=== PATIENT | female | born 1960 | race Caucasian/White ===

== ENCOUNTER 2019-04-16 19:46 | Inpatient (IN) | payer OTHER ==
[~2019-04-16] VITALS: Ht 165.1 cm; Wt 72.6 kg
[~2019-04-16 19:46] MED LIST: ANTIVERT25 MG PO; DOXYCYCLINE HY100 MG PO; GABAPENTIN100 MG PO; KEFLEX500 MG PO; LEVAQUIN750 MG PO; LEVOFLOXACIN750 MG PO; NICOTINE1 EAC1 TD; NORCO 5-325 TA1 EACH PO; PREDNISONE20 MG PO; PROVENTIL HFA6.7 GM INH; TAMIFLU; TRANSDERM-SCOP1 EA TD; ZOFRAN ODT8 MG PO
[2019-04-16] MEDS ORDERED: CETIRIZINE HCL10 MG PO (23:38)
[2019-04-16] MEDS ORDERED: ZITHROMAX250 MG PO (23:38)
[2019-04-16] MEDS ORDERED: ALBUTEROL2.5 MG/3 M INH (23:39)
--- NOTE | 2019-04-17 01:14 | NUR ---
ADMIT PT TO RM 129 PER ROGER FROM ED. HAS FREQ DRY HARSCH COUGH. CHEST HURTS WITH COUGH SHREYAS L LOWER CHEST, GIVEN 400MG MOTRIN PO AND POSITION DOES HELP DEC PAIN. STATES HAS HAD HX OF LOW BLOOD PRESSURE IN PAST BUT WAS NORMAL RECENTLY. EXPLAINED WAS SOMEWHAT LOW NOW DUE TO INFECTION AND THAT WE WILL BE MONITORING. URINE OUTPUT GOOD, WILL CONT TO MONITOR. HAS CRACKLES POST 1/2 UP BILAT. GIVEN ROBITUSSIN FOR COUGH.
--- NOTE | 2019-04-17 02:15 | NUR ---
SLEEPING, SAT DEC TO 88. 02 2L NC APPLIED.
--- NOTE | 2019-04-17 04:16 | NUR ---
AWAKENED FOR ASSESSMENT. HAS BEEN ABLE TO REST BUT BEGAN COUGHING AFTER HAVING PT DEEP BREATH. GIVEN TESSALON REGLA.COUGH IS DRY AND NONPRODUCTIVE. BREATH TONES ARE SLIGHTLY DECREASED, CRACKLES HAVE GREATLY IMPROVED. TAKING PO WATER WELL.
--- NOTE | 2019-04-17 06:07 | NUR ---
SITTING UP IN BED DRINKING COFFEE. IF TALKS MORE THAN FEW SENTENCES WILL START COUGHING. WILL WATCH.
--- NOTE | 2019-04-17 07:07 | NUR ---
DR MUNOZ CALL RE URINE OUTPUT. WILL GIVEN 500ML LR BOLUS.
--- NOTE | 2019-04-17 07:45 | NUR ---
pt having a persistant cough. gave 5ml robatussin ac.
--- NOTE | 2019-04-17 07:56 | NUR ---
In room to complete morning assessment. RT in room with patient at this time.
--- NOTE | 2019-04-17 09:48 | NUR ---
pt resting in bed with eye's closed. emptied pts kumar for 225mls for the last hour.
--- NOTE | 2019-04-17 10:30 | NUR ---
PT CONTINUES TO REST IN BED. BLOOD PRESSURES REMAIN SOFT. MD AWARE.
--- NOTE | 2019-04-17 11:35 | NUR ---
IN ROOM WITH PATIENT.
--- NOTE | 2019-04-17 12:15 | NUR ---
SPOKE WITH PATIENT IN ROOM. PATIENT IN BED EATING LUNCH. PATIENT STATES SHE LIVES WITH HER DAUGHTER ROB ALMAZAN AND HER IS RECENTLY . SHE PLANS TO RETURN HOME WITH HER. SHE WANTS ROB ADDED CONTACT FOR HOSPITAL RECORDS. SHE STATES THERE ARE A FEW STAIRS, BUT SHE DENIES NEEDING OR USING ANY DME OR HAVING ISSUES WITH STAIRS. SHE FEELS SAFE TO RETURN HOME. DISCUSSED DIAGNOSIS, KNOWING MEDICATIONS AND SIDE EFFECTS. SHE DOES NOT HAVE A CURRENT PCP, WILL USE [facility] CLINIC FOR FOLLOW UP. WE DISCUSSED FINDING NEW PCP, SHE STATES THE LAST TWO SHE HAD BOTH QUIT, AND SHE JUST HASN'T HAD TIME TO FIND NEW ONE. DISCUSSED POSSIBLE CLINICS IN TOWN. NO KNOWN BARRIERS TO DISCHARGE HOME AT THIS TIME. WILL FOLLOW NEEDED.
--- NOTE | 2019-04-17 12:38 | NUR ---
PT RESTING IN BED WITH EYE'S CLOSED. PTS URINE OUTPUT REMAINS GOOD AND PTS BLOOD PRESSURE SLOWLY INCREASING.
--- NOTE | 2019-04-17 12:58 | NUR ---
pt having persistent dry cough. gave 100mg tessalon pearls.
--- NOTE | 2019-04-17 13:52 | NUR ---
pt resting in bed. denies needs at this time. hourly urines continue. good urine output.
--- NOTE | 2019-04-17 15:38 | NUR ---
pt having coughing spell. dry non productive. pt stated "this is wearing me out." gave 5mg robitussin ac.
--- NOTE | 2019-04-17 17:18 | NUR ---
IN ROOM TO ASSIST PT WITH ORDERING DINNER.
--- NOTE | 2019-04-17 18:10 | NUR ---
IN ROOM TO REMOVE PT AREVALO CATHETER. PT TOLERATED WELL. INSTRUCTED PT TO CALL WHEN NEEDS TO GO TO THE BATHROOM. PT VERBALIZED UNDERSTANDING. CALL LIGHT WITHIN REACH.
--- NOTE | 2019-04-17 18:33 | EKG ---
[facility] [address] [facility] [address] [place] [address] Signed Sinus tachycardia Low voltage QRS Borderline ECG No previous ECGs available Confirmed by JESSICA MUNOZ MD ([id number]) on 04/17/2019 6:33:01 PM Electronically Signed By: JESSICA MUNOZ MD 04/17/19 1833 PATIENT NAME: ANTOINE GARBER CLARY Electrocardiogram DATE OF : 62 PHYSICIAN: JESSICA MUNOZ MD REPORT #: [id number] REPORT IS CONFIDENTIAL AND NOT TO BE RELEASED WITHOUT AUTHORIZATION
--- NOTE | 2019-04-17 19:10 | NUR ---
PT REPORT RECEIVED FROM CCU RN. PT LAYING IN HOSPITAL BED, DENIES NEEDS AT THIS TIME.
--- NOTE | 2019-04-17 20:30 | NUR ---
IN TO ASSESS PATIENT AT THIS TIME. PT UP TO BATHROOM. STAND BY ASSIST ONLY REQUIRED. PT STEADY ON FEET. HEART RATE REMAINS IN THE 80'S. PT TEMPERATURE 99.6, PRN MEDICATION GIVEN (SEE EMAR). PT HAS HACKING, NON-PRODUCTIVE COUGH. IV FLUIDS INFUSING, CALL LIGHT WITHIN REACH. NO FURTHER NEEDS AT THIS TIME.
--- NOTE | 2019-04-17 21:08 | NUR ---
PT STATES SHE HAS THE CHILLS, ORAL TEMPERATURE INCREASED TO 101.3 AT THIS TIME. WILL CONTINUE TO MONITOR.
--- NOTE | 2019-04-17 21:52 | NUR ---
PT TEMPERATURE 99.4, PT REPORTS FEELING DIAPHORETIC. GIVEN COOL WASH CLOTH AND WATER. NO FURTHER NEEDS AT THIS TIME.
--- NOTE | 2019-04-17 22:42 | NUR ---
RESPONDED TO PT CALL LIGHT. PT UP TO VOID. STEADY ON FEET, STAND BY ASSIST ONLY REQUIRED. PT BACK IN BED. GIVEN PRN MEDICATION FOR COUGH. CALL LIGHT WITHIN REACH. NO FUTHER NEEDS AT THIS TIME.
--- NOTE | 2019-04-18 00:30 | NUR ---
UP TO BR TO VOID 900 ML OF CLEAR YELLOW URINE. DENIES SHORTNESS OF BREATH WITH AMBULATION. BACK TO BED W/O INCIDENT. IS TALKATIVE. IVF PATENT AT 50 ML/HR. COFFEE GIVEN PER REQUEST. CALL LIGHT WITHIN REACH.
--- NOTE | 2019-04-18 02:00 | NUR ---
PATIENT RESTING WITH EYES CLOSED. BREATHING EVEN AND UNLABORED. CALL LIGHT WITHIN REACH.
--- NOTE | 2019-04-18 04:28 | NUR ---
IN ROOM TO ASSESS PATIENT. UP TO BATHROOM WITH STAND BY ASSIST ONLY. GIVEN PRN MEDICATION FOR HACKING COUGHT ( SEE EMAR). PT BACK IN BED, NO FURTHER NEEDS AT THIS TIME.
--- NOTE | 2019-04-18 07:30 | NUR ---
PATIENT SHIFT REPORT RECIEVED FROM SHOVE UP RN. PATIENT IS RESTING IN BED AT THIS TIME AND DENIES ANY NEEDS. WILL CONTINUE TO CLOSELY MONITOR.
--- NOTE | 2019-04-18 08:15 | NUR ---
MD MUNOZ IN TO SEE PATIENT. PER MD WITH TRANSFER PATIENT TO [facility] TODAY. ASSISTED PATIENT UP TO BATHROOM. PATIENT IS INDEPENDENT IN THE BATHROOM WITH NO ISSUES. ASSESSMENT COMPLETED ONCE SHE RETURNED TO BED AND BREATH SOUNDS CLEAR. PATIENT IS ON ROOM AIR AT THIS TIME WITH SPO2 93%. NON-PRODUCTIVE COUGH PRESENT AT TIMES. BOWEL TONES ACTIVE. FRESH WATER AND COFFEE AT BEDSIDE. BREAKFAST OFFERED. PATIENT STATES "I DONT NORMALLY EAT BREAKFAST". NO OTHER NEEDS AT THIS TIME. WILL CONTINUE TO CLOSELY MONITOR.
--- NOTE | 2019-04-18 10:15 | NUR ---
PATIENT RESTING IN BED. CHECKED PATIENTS SPO2 AND IT IS 94% ON RA. PATIENT IS HAVING A DRY OCCASIONALLY PRODUCTIVE COUGH THAT CAUSED SOME NAUSEA. GAVE PRN COUGH MEDICATIONS AND ZOFRAN. PROVIDED CRACKERS AT THE BEDSIDE. WILL CONTINUE TO CLOSELY MONITOR. REMOVED PATIENT FROM THE MONITORS D/T NEW ORDERS PLACED BY MD, PATIENT NO LONGER REQUIRES CARDIAC MONITORING.
--- NOTE | 2019-04-18 11:30 | NUR ---
REPORT GIVEN TO CHRISTO DYKES ON [employer]. ALL QUESTIONS ANSWERED. PATIENT DENIES ANY NEEDS AT THIS TIME. PATIENT IS UP TO THE CHAIR AND TOLERATED WELL. WILL CONTINUE TO CLOSELY MONITOR.
--- NOTE | 2019-04-18 11:45 | NUR ---
PATIENT TRANSFERED TO ROOM 108 ON [facility]. ALL BELONGINGS GATHERED AND SENT WITH PATIENT. ALL QUESTIONS ANSWERED. PATIENT IS AGREEABLE TO PLAN OF CARE. NO OTHER NEEDS AT THIS TIME. WILL CONTINUE TO CLOSELY MONITOR.
--- NOTE | 2019-04-18 12:00 | NUR ---
PT RECEIVED FROM CCU. PT ON ROOM AIR, O2 SATS 90%, LUNG SOUNDS CLEAR WITH DIMINISHED BASES. PT WITH COMPLAINT OF NAUSEA, STATES SHE THINKS IT IS FROM HER MORNING ABX, ASSISTED TO ORDER LUNCH, BOWEL TONES ACTIVE. PT DENIES PAIN. PT WITH PRODUCTIVE COUGH, YELLOW/ELLIOTT WITH BLOOD TINGED. PT REPORT OF CHRONIC NUMBNESS IN LOWER LEGS BUT NOT IN FEET, PULSES PALPABLE. DISCUSSED PLAN OF CARE, PT DENIES OTHER NEEDS AT THIS TIME.
--- NOTE | 2019-04-18 12:09 | NUR ---
JANIA BROWNLEE REQUESTED I CHECK IN ON PT. SHE WAS SITTING UP IN BED, COUGHING OCCASIONALLY. SHE QUICKLY OPENED UP TO ME ABOUT LOSING HER AND WORKING REALLY HARD AT TRYING TO REASSURE HERSELF THAT SHE IS DOING OK WITH HER LOSS. WE DEBRIEFED MORE, PTWILL BE MOVING TO [place] LATER TODAY. GAVE BLESSING, WILL FOLLOW NEEDED
[2019-04-18] MEDS ORDERED: VENTOLIN HFA18 GM INH (13:26)
[2019-04-18] MEDS ORDERED: FLONASE ALLERG9.9 ML NAS (13:57)
--- NOTE | 2019-04-18 13:57 | NUR ---
MED REC COMPLETE
--- NOTE | 2019-04-18 16:06 | NUR ---
PATIENT SITTING UP IN CHAIR. PATIENT GOES TO USE THE BATHROOM. ONE PERSON ASSISTING. PATIENT BACKS TO BED. WATER GIVEN. WARM BLANKET PROVIDED. CALL LIGHT WITHIN REACH. NO OTHER NEEDS AT THIS TIME
--- NOTE | 2019-04-18 18:14 | NUR ---
DR. FOSTER NOTIFIED OF FEVER AND HYPOTENSION, NO NEW ORDERS AT THIS TIME.
--- NOTE | 2019-04-18 19:10 | NUR ---
SHIFT REPORT RECEIVED FROM NELLNYROSARIO ANTUNEZ AT BEDSIDE. PT RESTING IN BED, SALINE LOCKED. DENIES NEEDS AT THIS TIME, CALL LIGHT IN REACH.
--- NOTE | 2019-04-18 21:45 | NUR ---
NOTIFIED BY EGG FACTORY WORKER OCTOBER OF PT'S TEMP RESULT OF 101.3. COOL RAG APPLIED TO PT'S NECK PER EGG FACTORY WORKER OCTOBER. CURRENT ORDERS FOR PRN BLOOD CULTURES FOR TEMP OVER 38.2, HOWEVER, BLOOD CULTURES COLLECTED PRIOR TO SHIFT CHANGE DUE TO ELEVATED TEMP PER SHIFT REPORT. REPEAT ORAL TEMP RESULT OF 101.7. THIS RN CALLED DR FOSTER FOR CLARIFICATION AND MADE AWARE OF EVENTS. PER MD, GIVE PRN TYLENOL AND REEVALUATE AND GIVE PRN MOTRIN IF NEEDED. WILL CONTINUE TO MONITOR. PRN TYLENOL ADMINISTERED. PT ENCOURAGED TO USE IS, TURN, AND COUGH AND DEEP BREATH. PT VERBALIZED UNDERSTANDING.
--- NOTE | 2019-04-18 22:15 | NUR ---
ASSESSMENT COMPLETE, VSS. SEE PREVIOUS RN NOTE REGARDING PRN TYLENOL. PT DENIES PAIN. SCHEDULED MEDICATIONS GIVEN, SEE EMAR. LUNG SOUNDS CLEAR, NO DISTRESS NOTED. PT ON RA, RR WNL. WILL CONTINUE TO MONITOR. PT ENCOURAGED TO USE IS, PT VERBALIZED UNDERSTANDING. CALL LIGHT IN REACH.
--- NOTE | 2019-04-18 23:03 | NUR ---
IV ABX COMPLETE, IV SITE WNL. PT UP SBA TO VOID, 500MLS OUTPUT. PT DENIES ADDITIONAL NEEDS, COOL RAG PROVIDED. CALL LIGHT IN REACH.
--- NOTE | 2019-04-19 00:13 | NUR ---
ORAL TEMP RESULT OF 98.6. PT REPORTS SWEATING. AFEBRILE AT THIS TIME. WILL CONTINUE TO MONITOR.
--- NOTE | 2019-04-19 01:27 | NUR ---
PT RESTING IN BED, O2 SPOT CHECK 93%. PT ON RA, WILL CONTINUE TO MONITOR. CALL LIGHT IN REACH, NO DISTRESS NOTED.
--- NOTE | 2019-04-19 03:42 | NUR ---
pt resting in bed, eyes closed. per dry charge process attendant, pt placed on 1lnc, for o2 sat in upper 80's. no distress noted, call light in reach.
--- NOTE | 2019-04-19 05:18 | NUR ---
ASSESSMENT COMPLETE, NO NEW CHANGES OR CONCERNS. VSS, PT ON 1LNC WHILE SLEEPING. PT DENIES PAIN. INTERMITTENT COUGHING NOTED, NO DISTRESS. FRESH WATER AT BEDSIDE. NO FURTHER NEEDS, CALL LIGHT IN REACH.
--- NOTE | 2019-04-19 05:22 | NUR ---
PT HAD ELEVATED TEMP AT BEGINNING OF SHIFT, HIGHEST RESULT OF 101.7. RESOLVED AFTER PRN TYLENOL. ENCOURAGED USE OF IS, COUGH, TURNING, AND DEEP BREATHING. PT SBA WITH AMBULATION, USES CALL LIGHT APPROPERIATELY. REGULAR DIET, TOLERATING WELL. NO NAUSEA THIS SHIFT. IV SITES X2 WNL, SCHEDULED ROCEPHIN. NEEDS SPUTUM CULTURE.
--- NOTE | 2019-04-19 07:25 | NUR ---
PT RESTING SUPINE IN BED EYES CLOSED AND RESPIRATIONS EVEN AND UNLABORED. PT ALERT TO VOICE AND DENIES SOB, PAIN, NEEDS OR REQUESTS AT THIS TIME. BEDSIDE REPORT RECEIVED FROM JANIA PADRON. CALL LIGHT AND H2O IN REACH.
--- NOTE | 2019-04-19 08:31 | NUR ---
SET PATIENT UP FOR BREAKFAST.
--- NOTE | 2019-04-19 08:44 | NUR ---
PT SITTING IN HIGH FOWLERS POSTION EATING BREAKFAST, AM NEDS ADMINISTERED AND ASSESSMENT COMPLETED. CALL LIGHT AND H2O IN REACH. NO NEEDS OR CONERNS VOICED.
--- NOTE | 2019-04-19 10:07 | NUR ---
PT RESTING SUPINE IN BED. EYES CLOSED AND RESPIRATIONS EVEN AND UNLABORED. CALL LIGHT AND H2O IN REACH. PT APPEARS TO BE SLEEPING COMFORTBALY.
--- NOTE | 2019-04-19 14:50 | NUR ---
PATIENT TOOK A SHOWER BEFORE HER LUNCH CAME. PATIENT IS SLEEPING.
--- NOTE | 2019-04-19 14:50 | NUR ---
Pt reports aching all over and feeling cold, warm blanket provided per pt request. Assessment completed, prn tylenol administered. Pt denies sob, pain or nausea. Call light and h2o in reach. Pt denies further needs or concerns.
--- NOTE | 2019-04-19 17:16 | NUR ---
temp 97.6. pt denies any pain or sob or any other problems at this time.
--- NOTE | 2019-04-19 19:00 | NUR ---
SHIFT REPORT RECEIVED FROM ESTELA WADE AT BEDSIDE. PT AWAKE AND RESTING IN BED, ON RA AT THIS TIME. BOARD UPDATED. PT APPEARS IN GOOD SPIRITS, DENIES NEEDS. CALL LIGHT IN REACH.
--- NOTE | 2019-04-19 20:44 | NUR ---
ASSESSMENT COMPLETE, PT ON RA. LUNG SOUNDS CLEAR, DIMINISHED IN BASES. SBP 98, MD ALREADY AWARE PT HAS HX OF LOW SPB. PT DENIES DIZZINESS OR DYSPNEA WHEN AMBULATING. IV ABX INFUSING, IV SITE WNL. PT APPEARS IN GOOD SPIRITS, DENIES FURTHER NEEDS, CALL LIGHT IN REACH.
--- NOTE | 2019-04-19 22:25 | NUR ---
SPOKE TO MARIE FROM TELEPHARMACY TO HAVE PT'S IV ABX RETIMED.
--- NOTE | 2019-04-19 22:41 | NUR ---
IV ABX COMPLETE, IV SITE FLUSHES WELL. PT RESTING IN BED, DENIES FURTHER NEEDS. CALL LIGHT IN REACH.
--- NOTE | 2019-04-20 01:30 | NUR ---
ASSESSMENT COMPLETE, NO NEW CHANGES OR CONCERNS. PT RESTING IN BED. SCHEDULED IV ABX INFUSING, IV SITE WNL. PT DENIES PAIN. AFEBRILE. DENIES FURTHER NEEDS, CALL LIGHT IN REACH.
--- NOTE | 2019-04-20 03:19 | NUR ---
PT RESTING IN BED, EYES CLOSED. IV ABX INFUSING PER MD ORDERS, IV SITE WNL. NO DISTRESS NOTED, CALL LIGHT IN REACH.
--- NOTE | 2019-04-20 05:24 | NUR ---
PT HAD UNEVENTFUL NIGHT, SLEPT WELL THIS SHIFT. A/OX4, VSS. AFEBRILE THIS SHIFT. SBP IN 90'S, ALREADY AWARE. REGULSR DIET, TOLERATING WELL. NO NAUSEA OR PAIN NOTED. SCHEDULED IV ABX, SITE WNL. PT VOIDING QS, NO BM THIS SHIFT. USES CALL LIGHT APPROPERAITELY.
--- NOTE | 2019-04-20 05:25 | NUR ---
Vitals & I&Os done, emptied trash, gave fresh water and coffee.
--- NOTE | 2019-04-20 06:10 | NUR ---
PT'S SBP UPPER 90'S. MD ALREADY AWARE, PT HAS HX OF BORDERLINE SBP. MAP MID 50'S. PT ASYMPTOMATIC AND RESTING IN BED. COMMUNICATION EQUIPMENT MECHANIC AWARE.
--- NOTE | 2019-04-20 09:29 | NUR ---
PT RESTING IN SEMIFOWLERS POSITION IN BED, ALERT AND OREINTED. ASSESSMENT COMPLETED. AM MEDS ADMINISTERED. PT DENIES NEEDS/CONCERNS. CALL LIGHT AND H2O IN REACH.
--- NOTE | 2019-04-20 10:19 | NUR ---
PT RESTING SUPINE RIN BED ALERT AND OREINTED. PT DENIES PAIN, SOB NASUEA OR ANY OTHER CONCERNS OR NEEDS. FRESH H2O/CALL LIGHT IN REACH. IV ABX INFUSING -SEE EMAR.
--- NOTE | 2019-04-20 10:47 | NUR ---
MD NOTIFIED OF LOW BP OF 90/33 PER MD REQUEST BP WILL BE RECHECKED AN HOUR FROM TIME OF MOST RECENT BP.
--- NOTE | 2019-04-20 13:26 | NUR ---
PT RESTING IN SEMIFOWLERS POSTION IN BED, ALERT AND ORIENTED. PT DENIES PAIN, SOB, NAUSEA OR OTHER SYMPTOMS AT THIS TIME. ASSESSMENT COMPLETED. CALL LIGHT AND H2O IN REACH.
--- NOTE | 2019-04-20 13:30 | NUR ---
DR FOSTER NOTIFIED OF LOW BP OF 88/45, NO NEW ORDERS. ENCOURAGED PT TO INCREASE FLUID INTAKE.
--- NOTE | 2019-04-20 14:00 | NUR ---
Pt resting in semifowlers positon in bed, alert and oriented. BP recheck was WNL -see VS flow sheet. Pt denies sob, dizziness, chills, pain or any other symptoms. Call light and h2o in reach.
--- NOTE | 2019-04-20 17:07 | NUR ---
PT REPORTS RIB PAIN TO LEFT LOWER BACK. PT REQUESTED AND RECEIVED PRN PO TYLENOL AND PRN IV MORPHINE. PT REPORTED SOB WITH EXERTION WITH TRANSFER TO [facility]SC SO WAS PLACED ON 2LPNC FOR COMFORT PER HER REQUEST. PT SATTING 98% PER CPOX. CALL LIGHT AND H2O IN REACH. NO FURTHER NEEDS OR CONCERNS VOICED. PT DENIES SOB OR NAUSEA AT THIS TIME. PT AGREES TO USE CALL LIGHT IF PAIN PERSISTS OR WORSENS.
--- NOTE | 2019-04-20 17:32 | NUR ---
Pt resting supine in bed watching tv, states "I've been up walking in my room just a little bit ago" when asked if she would like to go for a walk. PM meds administered. H2o and call light in reach. No needs or conerns voiced.
--- NOTE | 2019-04-20 19:05 | NUR ---
SHIFT REPORT RECEIVED FROM DAYSHIFT JANIA QUINN AT BEDSIDE. PT AWAKE AND RESTING IN BED, NO DISTRESS NOTED. CALL LIGHT IN REACH. NO NEEDS AT THIS TIME, CALL LIGHT IN REACH.
--- NOTE | 2019-04-20 20:47 | NUR ---
HELPED PT TO THE BATHROOM AND BACK TO BED. VITALS AND I&OS DONE AND CHARTED. BEDSIDE TABLE AND CALL LIGHT IN REACH. FRESH ICE WATER GIVEN.
--- NOTE | 2019-04-20 20:51 | NUR ---
ASSESSMENT COMPLETE, SCHEDULED MEDICATIONS GIVEN.SENNA HELD PER PT REQUEST. VSS, PT ON RA. LUNG SOUNDS CLEAR, NO DISTRESS NOTED. PT REPORTS INTERMITTENT NONPRODUCTIVE COUGH, DENIES NEED FOR COUGH MEDICATION AT THIS TIME. WILL MONITOR. IV ABX INFUSING PER MD ORDERS, SCANT REDDNESS NOTED AT IV SITE. NO SIGNS OF INFILITRATION OR EDEMA NOTED. WILL MONITOR AND PLACE NEW IV IF NEEDED. NO FURTHER NEEDS, CALL LIGHT IN REACH.
--- NOTE | 2019-04-20 22:45 | NUR ---
PT REPORTS INCREASE PAIN TO IV SITE. REDDNESS NOTED, IV SITE INFILTRATED. IV CATHETER REMOVED BY LIVESTOCK LABORER RADHIKA, TIP INTACT PER LIVESTOCK LABORER. HEAT PACK ALSO PROVIDED, EXTREMITY ELEVATED. THIS RN ATTEMPTED TO PLACE NEW IV TO LEFT FOREARM, UNSUCCESSFUL. JANIA MO PLACED NEW IV SITE TO LEFT AC AFTER TWO ATTEMPTS.PT DENIES ADDTIONAL NEEDS, CALL LIGHT IN REACH.
--- NOTE | 2019-04-20 23:56 | NUR ---
UPDATED PT'S VASCULAR ACCESS MANAGEMENT WELL DOCUMENTS IV INSERTION, SEE PREVIOUS RN NOTE. 20G TO RIGHT AC WAS REMOVED BY JANIA GARRIDO AND 20G TO LEFT FOREARM WAS ALREADY DISCONTINUED WHEN THIS RN BEGAN THIS SHIFT.
--- NOTE | 2019-04-21 01:30 | NUR ---
IV ABX INFUSING, IV SITE WNL. PT AFEBRILE AT THIS TIME. ASSESSMENT COMPLETE, NO NEW CHANGES OR CONCERNS. CALL LIGHT IN REACH.
--- NOTE | 2019-04-21 04:52 | NUR ---
A/OX4, DENIED PAIN ALL SHIFT. VSS, PT ON RA. IV SITE TO RIGHT ARM INFILITRATED, NEW IV PLACED TO RIGHT AC, SITE WNL. SCHEDULED IV FLAGYL AND IV CEPEPIME. REGULAR DIET, TOLERATING WELL. NO NAUSEA. VOIDING QS, NO BM THIS SHIFT. SBA WITH AMBULATION. USES CALL LIGHT APPROPERIATELY.
--- NOTE | 2019-04-21 06:43 | NUR ---
TOOK VITALS, SBA PT TO RR.
--- NOTE | 2019-04-21 08:33 | NUR ---
PATIENT SITTING UP IN THE BED EATING BREAKFAST. WARM WASHCLOTH OFFERED. CALL LIGHT IN REACH. NO FURTHER NEEDS AT THIS TIME.
[2019-04-21] MEDS ORDERED: SUDOGEST30 MG PO (10:56)
[2019-04-21] MEDS ORDERED: AMOXICILLIN-CL1 EACH PO (11:00)
== END 2019-04-21 12:15 | disposition home or self-care (01) | DRG 871 ==
LOC: ED 19:46 → CCU 23:43 → MS 04-18 11:40
PROVIDERS: ADMIT Internal Medicine
DX: A40.3 Sepsis due to Streptococcus pneumoniae (principal); J13 Pneumonia due to Streptococcus pneumoniae; R65.20 Severe sepsis without septic shock; Z94.81 Bone marrow transplant status; F17.210 Nicotine dependence, cigarettes, uncomplicated; J01.41 Acute recurrent pansinusitis; Z88.1 Allergy status to other antibiotic agents; Z85.6 Personal history of leukemia; Z23 Encounter for immunization; Z85.89 Personal history of malignant neoplasm of other organs and systems
CPT/HCPCS: 36415; 51702; 71046; 80053; 81001; 83605; 83615; 83735; 85007; 85025; 85032; 85651; 87502; 90688; 93005; 93010; 94640; 94667; 94668; 94760; 99284-25; 99406; J0692; J0696; J1200; J1650; J1956; J2405; J7030; J7060; J7120; J7121

== ENCOUNTER 2023-01-29 21:12 | Emergency (ER) | payer BC, OTHER ==
[~2023-01-29] VITALS: Ht 165.1 cm; Wt 72.1 kg
[~2023-01-29 21:12] MED LIST changes: +ALBUTEROL2.5 MG/3 M INH; +AMOXICILLIN-CL1 EACH PO; +CETIRIZINE HCL10 MG PO; +FLONASE ALLERG9.9 ML NAS; +SUDOGEST30 MG PO; +VENTOLIN HFA18 GM INH; +ZITHROMAX250 MG PO
[2023-01-30 01:25] VITALS: BP 102/48
== END 2023-01-30 01:26 | disposition home or self-care (01) ==
LOC: ED 21:12
DX: I73.9 Peripheral vascular disease, unspecified (principal); F17.200 Nicotine dependence, unspecified, uncomplicated; Z88.1 Allergy status to other antibiotic agents; Z79.899 Other long term (current) drug therapy
CPT/HCPCS: 93926; 99283 25

== ENCOUNTER 2023-04-27 19:58 | Emergency (ER) | payer BC, OTHER ==
[~2023-04-27] VITALS: Ht 165.1 cm; Wt 72.6 kg
[2023-04-27] MEDS ORDERED: ELIQUIS2.5 MG (21:17)
[2023-04-27] MEDS ORDERED: CLOPIDOGREL75 MG (21:17)
[2023-04-27] MEDS ORDERED: NEURONTIN300 MG (21:17)
[2023-04-27] MEDS ORDERED: OSTERA TABLET1 EACH (21:18)
[2023-04-27] MEDS ORDERED: CEPHALEXIN500 MG (21:18)
[2023-04-27 21:37] LABS: BASOPHILS 1.7 % (0-2); EOSINOPHILS 0.7 % (0-6); HEMATOCRIT 35.9 % (35.0-50.0); HEMOGLOBIN 12.1 g/dL (12.0-18.0); LYMPHOCYTES 38.8 % (24-44); MCH 32.2 (27-36); MCHC 33.8 g/dl (30-36); MCV 95.3 fl (81-99); MONOCYTES 7.1 % (0-12); NEUTROPHILS 51.7 % (39-80); PLATELET COUNT 362 K/uL (140-440); RBC 3.76 M/ul (4.3-5.7); RDW 13.8 (10.5-15.0)
[2023-04-27 21:53] LABS: ALBUMIN 3.3 g/dL (3.4-5.0); ALBUMIN/GLOBULIN RATIO 0.83 (1.1-2.4); ANION GAP 12.6 (7-21); BILIRUBIN, TOTAL 0.5 ng/dL (0.2-1.0); BUN/CREATININE RATIO 5.55 (6.0-28.6); CALCIUM 9.1 mg/dL (8.5-10.1); CREATININE, SERUM 0.72 mg/dL (0.55-1.02); POTASSIUM 3.6 mmol/L (3.5-5.1); PROTEIN, TOTAL 7.3 g/dL (6.4-8.2)
[2023-04-27 21:54] LABS: INR 1.06 (0.80-1.30); PROTIME 13.3 Sec (11.2-14.2)
[2023-04-27 21:57] LABS: LACTIC ACID, BLOOD 0.8 mmol/L (0.4-2.0)
[2023-04-27 22:10] LABS: INFLUENZA B NAA NEGATIVE (NEGATIVE); RESPIRATORY SYNCYTIAL VIR NAA NEGATIVE (NEGATIVE)
[2023-04-27 22:54] LABS: BILIRUBIN, URINE NEGATIVE (negative); BLOOD/HGB, URINE SMALL (Negative); KETONE, URINE NEGATIVE (Negative); LEUK ESTERASE, URINE NEGATIVE (negative); NITRITE, URINE NEGATIVE (negative)
[2023-04-27 23:01] LABS: EPITHELIAL CELLS, URINE SQUAMOUS 1+ /lpf (0-1+)
[2023-04-27 23:02] LABS: BACTERIA, URINE RARE /hpf (negative); CASTS, URINE NONE SEEN \\lpf; CRYSTALS, URINE NONE SEEN (0-1+); REFLEX CULTURE, URINE No (No)
[2023-04-28 03:08] VITALS: BP 111/63
== END 2023-04-28 03:00 | disposition short-term general hospital (02) ==
LOC: ED 19:58
PROVIDERS: Family Medicine
DX: I70.202 Unspecified atherosclerosis of native arteries of extremities, left leg (principal); L03.116 Cellulitis of left lower limb; F17.200 Nicotine dependence, unspecified, uncomplicated; Z79.02 Long term (current) use of antithrombotics/antiplatelets; Z79.01 Long term (current) use of anticoagulants; Z79.2 Long term (current) use of antibiotics; Z79.899 Other long term (current) drug therapy; Z88.1 Allergy status to other antibiotic agents; Z88.8 Allergy status to other drugs, medicaments and biological substances
CPT/HCPCS: 36415; 51701; 80053; 81001; 83605; 85025; 85610; 87502; 93926; 99284-25; C9803; J0692; J1170; J3370; J7030; J7121; U0002

== ENCOUNTER 2023-05-03 14:03 | Emergency (ER) | payer BC, OTHER ==
[~2023-05-03] VITALS: Ht 165.1 cm; Wt 73.0 kg
[~2023-05-03 14:03] MED LIST changes: +CEPHALEXIN500 MG; +CLOPIDOGREL75 MG; +ELIQUIS2.5 MG; +NEURONTIN300 MG PO; +OSTERA TABLET1 EACH
--- OUTSIDE RECORDS SUMMARY | 2023-05-03 14:06 | XMS ---
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 Mello VISIT COUNT (12 MO.) 3 [facility] TOTAL 3 NOTE: Visits indicate total known visits. ED/UCC VISIT TRACKING (12 MO.) 05/03/2023 14:04 [facility] TYPE: Emergency COMPLAINT: - L LEG WOUND 04/27/2023 19:58 [facility] TYPE: Emergency COMPLAINT: - WOUND CHECK DIAGNOSES: - Allergy status to other antibiotic agents - Allergy status to other drugs, medicaments and biological substances - Cellulitis of left lower limb - correction (current) use of antibiotics - intermission coordinator (current) use of anticoagulants - intermission coordinator (current) use of antithrombotics/antiplatelets - Nicotine dependence, unspecified, uncomplicated - Other senior living (current) drug therapy - Other specified soft tissue disorders - Unspecified atherosclerosis of [place] arteries of extremities, left leg 01/29/2023 21:16 [facility] TYPE: Emergency COMPLAINT: - L LEG FEELS COLD DIAGNOSES: - Allergy status to other antibiotic agents - Cramp and spasm - Nicotine dependence, unspecified, uncomplicated - Other intermission coordinator (current) drug therapy - Peripheral vascular disease, unspecified INPATIENT VISIT TRACKING (12 MO.) [facility] DIAGNOSES: - Allergy status to other antibiotic agents - Atherosclerosis of [place] arteries of left leg with ulceration of other part of lower leg - Cellulitis of left lower limb - Peripheral vascular disease, unspecified - Tobacco use - Left femoral artery occlusion [email or web address]
[2023-05-03 21:58] LABS: BASOPHILS 0.9 % (0-2); EOSINOPHILS 2.7 % (0-6); HEMATOCRIT 33.9 % (35.0-50.0); HEMOGLOBIN 11.2 g/dL (12.0-18.0); LYMPHOCYTES 27.9 % (24-44); MCH 31.6 (27-36); MCHC 32.9 g/dl (30-36); MCV 96.1 fl (81-99); MONOCYTES 9.6 % (0-12); NEUTROPHILS 58.9 % (39-80); PLATELET COUNT 320 K/uL (140-440); RBC 3.53 M/ul (4.3-5.7); RDW 13.8 (10.5-15.0)
[2023-05-03] MEDS ORDERED: CEFDINIR300 MG PO (22:00)
[2023-05-03] MEDS ORDERED: LIPITOR40 MG PO (22:01)
[2023-05-03] MEDS ORDERED: NICODERM CQ1 EAC1 TD (22:02)
[2023-05-03] MEDS ORDERED: MIRALAX17 GM PO (22:03)
[2023-05-03] MEDS ORDERED: OXYCODONE HCL5 MG PO (22:03)
[2023-05-03] MEDS ORDERED: SENNA8.6 MG PO (22:04)
[2023-05-03 22:13] LABS: ALBUMIN 2.8 g/dL (3.4-5.0); ALBUMIN/GLOBULIN RATIO 0.74 (1.1-2.4); ANION GAP 12.5 (7-21); BILIRUBIN, TOTAL 0.5 ng/dL (0.2-1.0); BUN/CREATININE RATIO 8.33 (6.0-28.6); CREATININE, SERUM 0.72 mg/dL (0.55-1.02); POTASSIUM 3.5 mmol/L (3.5-5.1); PROTEIN, TOTAL 6.6 g/dL (6.4-8.2)
[2023-05-03] MEDS ORDERED: DILAUDID2 MG PO (23:17)
[2023-05-04 00:17] VITALS: BP 113/45
== END 2023-05-04 00:18 | disposition home or self-care (01) ==
LOC: ED 14:03
PROVIDERS: Family Medicine
DX: L03.116 Cellulitis of left lower limb (principal); F17.200 Nicotine dependence, unspecified, uncomplicated; Z88.1 Allergy status to other antibiotic agents; Z91.048 Other nonmedicinal substance allergy status; Z79.02 Long term (current) use of antithrombotics/antiplatelets; Z79.01 Long term (current) use of anticoagulants; Z79.899 Other long term (current) drug therapy
CPT/HCPCS: 36415; 73590; 80053; 83605; 85025; 96374; 99283-25; A9270; J1170

== ENCOUNTER 2023-06-02 16:11 | Inpatient (IN) | payer BC, OTHER ==
[~2023-06-02] VITALS: Ht 165.1 cm; Wt 82.9 kg
[~2023-06-02 16:11] MED LIST changes: +CEFDINIR300 MG PO; -CLOPIDOGREL75 MG; +CLOPIDOGREL75 MG PO; +DILAUDID2 MG PO; +LIPITOR40 MG PO; +MIRALAX17 GM PO; +NICODERM CQ1 EAC1 TD; +OXYCODONE HCL5 MG PO; +SENNA8.6 MG PO
--- OUTSIDE RECORDS SUMMARY | 2023-06-02 16:13 | XMS ---
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 Mello VISIT COUNT (12 MO.) 4 [facility] TOTAL 4 NOTE: Visits indicate total known visits. ED/UCC VISIT TRACKING (12 MO.) 06/02/2023 16:12 [facility] TYPE: Emergency COMPLAINT: - WOUND CHECK 05/03/2023 14:04 [facility] TYPE: Emergency COMPLAINT: - L LEG WOUND DIAGNOSES: - Allergy status to other antibiotic agents - Cellulitis of left lower limb - watermelon harvesting supervisor (current) use of anticoagulants - care home (current) use of antithrombotics/antiplatelets - Nicotine dependence, unspecified, uncomplicated - Other [place] [facility] (current) drug therapy - Other nonmedicinal substance allergy status - Pain in left leg 04/27/2023 19:58 [facility] TYPE: Emergency COMPLAINT: - WOUND CHECK DIAGNOSES: - Allergy status to other antibiotic agents - Allergy status to other drugs, medicaments and biological substances - Cellulitis of left lower limb - Contact with and (suspected) exposure to COVID-19 - Encounter for screening for COVID-19 - care home (current) use of antibiotics - watermelon harvesting supervisor (current) use of anticoagulants - care home (current) use of antithrombotics/antiplatelets - Nicotine dependence, unspecified, uncomplicated - Other watermelon harvesting supervisor (current) drug therapy - Other specified soft tissue disorders - Unspecified atherosclerosis of [place] arteries of extremities, left leg 01/29/2023 21:16 [facility] TYPE: Emergency COMPLAINT: - L LEG FEELS COLD DIAGNOSES: - Allergy status to other antibiotic agents - Cramp and spasm - Nicotine dependence, unspecified, uncomplicated - Other [place] [facility] (current) drug therapy - Peripheral vascular disease, unspecified INPATIENT VISIT TRACKING (12 MO.) [facility]23 04[facility] DIAGNOSES: - Allergy status to other antibiotic agents - Atherosclerosis of [place] arteries of left leg with ulceration of other part of lower leg - Cellulitis of left lower limb - Peripheral vascular disease, unspecified - Tobacco use - Left femoral artery occlusion [email or web address]
[2023-06-02] MEDS ORDERED: VITAMIN D310 MC2 PO (16:42)
[2023-06-02 17:28] LABS: BASOPHILS 0.7 % (0-2); EOSINOPHILS 1.4 % (0-6); HEMATOCRIT 32.8 % (35.0-50.0); HEMOGLOBIN 10.9 g/dL (12.0-18.0); LYMPHOCYTES 29.8 % (24-44); MCH 30.7 (27-36); MCHC 33.3 g/dl (30-36); MCV 92.3 fl (81-99); NEUTROPHILS 60.1 % (39-80); PLATELET COUNT 405 K/uL (140-440); RBC 3.56 M/ul (4.3-5.7); RDW 14.7 (10.5-15.0)
[2023-06-02 17:49] LABS: ALBUMIN 2.9 g/dL (3.4-5.0); ALBUMIN/GLOBULIN RATIO 0.62 (1.1-2.4); BILIRUBIN, TOTAL 0.4 ng/dL (0.2-1.0); BUN/CREATININE RATIO 7.4 (6.0-28.6); CALCIUM 8.9 mg/dL (8.5-10.1); CREATININE, SERUM 0.81 mg/dL (0.55-1.02); PROTEIN, TOTAL 7.6 g/dL (6.4-8.2)
[2023-06-02 20:05] VITALS: BP 122/59
[2023-06-03 03:19] VITALS: BP 96/56
[2023-06-03 05:23] LABS: BASOPHILS 0.9 % (0-2); EOSINOPHILS 2.3 % (0-6); HEMOGLOBIN 10.3 g/dL (12.0-18.0); MCH 30.5 (27-36); MCHC 33.1 g/dl (30-36); MCV 92.1 fl (81-99); MONOCYTES 9.4 % (0-12); NEUTROPHILS 53.4 % (39-80); PLATELET COUNT 396 K/uL (140-440); RBC 3.37 M/ul (4.3-5.7); RDW 14.6 (10.5-15.0)
[2023-06-03 05:40] LABS: ALBUMIN 2.2 g/dL (3.4-5.0); ALBUMIN/GLOBULIN RATIO 0.54 (1.1-2.4); ANION GAP 11.3 (7-21); BILIRUBIN, TOTAL 0.5 ng/dL (0.2-1.0); BUN/CREATININE RATIO 5.47 (6.0-28.6); CALCIUM 8.3 mg/dL (8.5-10.1); CREATININE, SERUM 0.73 mg/dL (0.55-1.02); MAGNESIUM 2.1 mg/dL (1.8-2.4); PHOSPHORUS, INORGANIC 3.6 mg/dL (2.5-4.9); POTASSIUM 4.3 mmol/L (3.5-5.1); PROTEIN, TOTAL 6.3 g/dL (6.4-8.2)
[2023-06-03 06:24] VITALS: BP 97/44
[2023-06-03] MEDS ORDERED: ELIQUIS5 MG PO (10:05)
[2023-06-03 11:56] VITALS: BP 95/75
[2023-06-03] MEDS ORDERED: TRAMADOL HCL50 MG PO (14:02)
[2023-06-03 16:43] VITALS: BP 92/65
[2023-06-03 21:09] VITALS: BP 99/53
[2023-06-04 04:01] VITALS: BP 113/48
[2023-06-04 05:45] LABS: BASOPHILS 1.3 % (0-2); EOSINOPHILS 2.2 % (0-6); HEMATOCRIT 29.1 % (35.0-50.0); HEMOGLOBIN 9.8 g/dL (12.0-18.0); LYMPHOCYTES 34.4 % (24-44); MCH 30.8 (27-36); MCHC 33.5 g/dl (30-36); MCV 91.9 fl (81-99); MONOCYTES 10.7 % (0-12); NEUTROPHILS 51.4 % (39-80); PLATELET COUNT 412 K/uL (140-440); RBC 3.17 M/ul (4.3-5.7); RDW 15.1 (10.5-15.0)
[2023-06-04 06:02] LABS: ALBUMIN 2.2 g/dL (3.4-5.0); ALBUMIN/GLOBULIN RATIO 0.56 (1.1-2.4); ANION GAP 10.1 (7-21); BILIRUBIN, TOTAL 0.2 ng/dL (0.2-1.0); BUN/CREATININE RATIO 7.31 (6.0-28.6); CALCIUM 8.1 mg/dL (8.5-10.1); CREATININE, SERUM 0.82 mg/dL (0.55-1.02); POTASSIUM 4.1 mmol/L (3.5-5.1); PROTEIN, TOTAL 6.1 g/dL (6.4-8.2)
[2023-06-04 08:28] VITALS: BP 94/53
[2023-06-04 11:54] VITALS: BP 98/46
--- NOTE | 2023-06-04 14:05 | CONS ---
[facility] [address] [place], [place] [address] Signed DATE OF CONSULTATION: 06/03/2023 REQUESTING PHYSICIAN: Dr. Mcdonald. PROBLEM: Left leg open wound, cellulitis and peripheral vascular disease. HISTORY OF PRESENT ILLNESS: This 62-year-old white woman has been admitted by Dr. Mcdonald for left lower extremity cellulitis. She has been cared for in the wound care clinic with an open wound to the left anteromedial lower leg. She had vascular insufficiency related to the leg and underwent stenting of what sounds like the common femoral artery at [facility] several months ago. Unfortunately, she continues to smoke three cigarettes a day, though previously smoked much more than that. She was identified by culture result several weeks ago to have MRSA infection. Review of the notes from her history and physical by Dr. Mcdonald shows that she had more than one vascular intervention of the left lower leg, all of them by stenting approach. She has had recurrent erythema and swelling of the legs consistent with recurrent cellulitis over time. At admission white count was 11.7, lactic acid 0.4, alkaline phosphatase was 150. Cultures had been obtained and she was started on cefepime and daptomycin. A blood culture from May 26 had grown out Klebsiella MRSA and group A strep. The patient denies foot pain or wound pain particularly. She does continue to smoke three cigarettes a day, though previously smoked far more. She declines nicotine patch or gum though it is able to should she desire it. She says she restarted smoking on the basis of "stress." The patient lives in [place] on [address] and works for [employer] in the [employer]. REVIEW OF SYSTEMS: She denies any shortness of breath or chest pain. She is somewhat emotional and easily brought to tears. PHYSICAL EXAMINATION: GENERAL: This is a pleasant white woman who does not look systemically toxic at this time. VITAL SIGNS: Height is 5 feet 5 inches, weight is 82.9 kg, BMI is 30.4. NECK: Trachea is midline. She has no jugular venous distention. CHEST: Shows normal respiratory excursion. HEART: Pulses regular. Electronically Signed By: LOUIS CONCEPCION MD 06/04/23 1405 PATIENT NAME: ANTOINE GARBER CONSULTATION DATE OF : 62 REPORT #: [id number] PHYSICIAN: LOUIS CONCEPCION MD PCP: SIOMARA RIOJAS PA-C REPORT IS CONFIDENTIAL AND NOT TO BE RELEASED WITHOUT AUTHORIZATION [facility] [address] [place], [place] [address] Signed EXTREMITIES: Examination of her left lower extremity shows mild erythema and some edema of the ankle, calf and forefoot. She has a bounding 3/3 dorsalis pedis pulse on the left. The open wound is examined and shows good granulation at its base in some areas still requiring management. Cephalad to the open area is a white patch of thickened dermis. It is markedly tender to touch, but does not appear bolus and may represent epidermolysis. There is no red streak more proximal in the leg. She has no sign of edema proximal to the knee. ASSESSMENT: The wound is actually healing reasonably well from what I see. She was admitted with cellulitis, which has been a recurrent problem, but it sounds for several weeks. She has a markedly good inflow and warm foot with a palpable dorsalis pedis pulse, no doubt related to stenting that has occurred. She absolutely must discontinue smoking. Although that really is an emotional issue for her, it is essential for her to accomplish this if she expects any wound healing going forward. I would envision a benefit from a wound VAC device to the open wound with reconsideration of the tissue cephalad to the wound on the next wound VAC dressing change. Leg elevation on the left side higher than her heart will expedite resolution of the edema. Continued IV antibiotics are appropriate as well. I would foresee accomplishment of control of the cellulitis and infection subsequent to reduction of her wound edema and cellulitis and ultimately capability for definitive closure of the wound with skin grafting. Discussed this with her in detail. I believe she understands. Louis Concepcion MD JM/MODL /[id number] cc: MD Siomara UNDERWOOD PA Electronically Signed By: LOUIS CONCEPCION MD 06/04/23 1405 PATIENT NAME: ANTOINE GARBER CONSULTATION DATE OF : 62 REPORT #: [id number] PHYSICIAN: LOUIS CONCEPCION MD PCP: SIOMARA RIOJAS PA-C REPORT IS CONFIDENTIAL AND NOT TO BE RELEASED WITHOUT AUTHORIZATION [address] [address] Signed Copies: ~ Electronically Signed By: LOUIS CONCEPCION MD 06/04/23 1405 PATIENT NAME: ANTOINE GARBER CLARY CONSULTATION DATE OF : 62 REPORT #: [id number] PHYSICIAN: LOUIS CONCEPCION MD PCP: SIOMARA RIOJAS PA-C REPORT IS CONFIDENTIAL AND NOT TO BE RELEASED WITHOUT AUTHORIZATION
[2023-06-04 16:24] VITALS: BP 93/51
[2023-06-04 20:29] VITALS: BP 118/55
[2023-06-05 04:30] VITALS: BP 126/48
[2023-06-05 05:33] LABS: BASOPHILS 1.3 % (0-2); EOSINOPHILS 2.5 % (0-6); HEMATOCRIT 31.5 % (35.0-50.0); HEMOGLOBIN 10.5 g/dL (12.0-18.0); LYMPHOCYTES 27.3 % (24-44); MCHC 33.4 g/dl (30-36); MCV 92.8 fl (81-99); MONOCYTES 6.8 % (0-12); NEUTROPHILS 62.1 % (39-80); PLATELET COUNT 459 K/uL (140-440); RBC 3.39 M/ul (4.3-5.7)
[2023-06-05 05:54] LABS: ALBUMIN 2.3 g/dL (3.4-5.0); ALBUMIN/GLOBULIN RATIO 0.58 (1.1-2.4); ANION GAP 12.4 (7-21); BILIRUBIN, TOTAL 0.2 ng/dL (0.2-1.0); BUN/CREATININE RATIO 7.35 (6.0-28.6); CALCIUM 8.4 mg/dL (8.5-10.1); CREATININE, SERUM 0.68 mg/dL (0.55-1.02); POTASSIUM 4.4 mmol/L (3.5-5.1); PROTEIN, TOTAL 6.3 g/dL (6.4-8.2)
[2023-06-05 12:16] VITALS: BP 111/64
[2023-06-05 16:17] VITALS: BP 110/50
[2023-06-05 20:24] VITALS: BP 104/49
[2023-06-06 05:22] VITALS: BP 101/54
[2023-06-06 10:18] VITALS: BP 103/49
[2023-06-06] MEDS ORDERED: AMOXICILLIN875 MG PO (10:29)
[2023-06-06 12:59] VITALS: BP 111/54
== END 2023-06-06 13:15 | disposition home or self-care (01) | DRG 603 ==
LOC: ED 16:11 → CCU 19:15 → MS 06-05 15:33
PROVIDERS: Emergency Medicine; ADMIT Family Medicine; ATTEND Family Medicine
DX: L03.116 Cellulitis of left lower limb (principal); E87.1 Hypo-osmolality and hyponatremia; Z94.81 Bone marrow transplant status; B96.89 Other specified bacterial agents as the cause of diseases classified elsewhere; F17.210 Nicotine dependence, cigarettes, uncomplicated; E78.00 Pure hypercholesterolemia, unspecified; Z90.710 Acquired absence of both cervix and uterus; Z88.8 Allergy status to other drugs, medicaments and biological substances; Z88.1 Allergy status to other antibiotic agents; Z98.890 Other specified postprocedural states; Z91.048 Other nonmedicinal substance allergy status; Z79.899 Other long term (current) drug therapy; Z79.01 Long term (current) use of anticoagulants; Z98.49 Cataract extraction status, unspecified eye; Z95.820 Peripheral vascular angioplasty status with implants and grafts
CPT/HCPCS: 36415; 80053; 83605; 83735; 84100; 85025; 87040; A9270; J0692; J0878; J2270; J7121

== ENCOUNTER 2023-06-20 07:55 | Day surgery (SDC) | payer BC, OTHER ==
[~2023-06-20] VITALS: Ht 165.1 cm; Wt 73.0 kg
[~2023-06-20 07:55] MED LIST changes: +AMOXICILLIN875 MG PO; +ELIQUIS5 MG PO; +TRAMADOL HCL50 MG PO; +VITAMIN D310 MC2 PO
[2023-06-20 08:42] VITALS: BP 126/63
[2023-06-20] MEDS ORDERED: SULFAMETHOXAZO1 EAC1 PO (10:50)
[2023-06-20] MEDS ORDERED: OXYCODON-ACETA1 EAC2 PO (10:51)
[2023-06-20] MEDS ORDERED: ACETAMINOPHEN500 MG PO (10:51)
--- NOTE | 2023-06-20 11:05 | NUR ---
PT ARRIVES TO UNIT VIA STRETCHER FROM PACU. PT IS DROWSY, BUT ORIENTED AND ASKS QUESTIONS APPROPRIATELY. PT ON RA W/O2 >90% VIA PULSE OX, RESPIRATIONS ARE EVEN AND UNLABORED, NO SIGNS OF DISTRESS. SURGICAL SITE ON RLE IS C/D/I, NO SIGNS OF DRAINAGE, GRAFT DONOR SITE ON RT UPPER THIGH HAS SCANT AMOUNT OF SS DRAINAGE BUT INTACT. PT REPORTS NO NAUSEA, DIZZINESS, N/T AT THIS TIME. PT STATES PAIN IS 4/10, BUT THAT THIS IS TOLERABLE AT THIS TIME. LLE IS ELEVATED, SCD ON RLE. CALL LIGHT WITHIN REACH. ICE WATER, JELLO, AND CRACKERS PROVIDED AT THIS TIME. NO FURTHER NEEDS AT THIS TIME.
[2023-06-20 11:08] VITALS: BP 103/64
--- NOTE | 2023-06-20 11:18 | NUR ---
06/20/23 1118 Dena Temple 1032 PT ARRIVED IN PACU SLEEPY WITH NO C/O'S. 1045 C/O LLE PAIN 11/23. 1048 FENTANYL 50MCG GIVEN IVP. 1050 DR AT BEDSIDE. ALL QUESTIONS ANSWERED. 1105 PAIN 0. TO DS. REPORT GIVEN TO RN.
[2023-06-20 12:09] VITALS: BP 104/77
--- NOTE | 2023-06-20 12:15 | NUR ---
IN PT ROOM FOR ASSESSMENT AND VS. PT REPORTS PAIN HAS SLIGHTLY INCREASED TO 5/10, W/OCCASIONAL GRIMACING AND DISCOMFORT. PT STATES DESIRE FOR PRN PAIN MED AT THIS TIME, GIVEN (SEE EMAR). NO ACUTE CHANGES IN SURGICAL DRESSING SITES. PT REMAINS ON RA W/O2 >90% VIA PULSE OX, RESPIRATIONS EVEN AND UNLABORED. PT TOLERATED ALL ORAL FOODS W/OUT DIFFICULTY SWALLOWING. CALL LIGHT WITHIN REACH, NO FURTHER NEEDS AT THIS TIME.
--- NOTE | 2023-06-20 13:00 | NUR ---
ANSWERED PT CALL LIGHT. PT REPORTS NEED TO URINE VOID. PT TO RESTROOM VIA WC TO MINIMIZE AMBULATION. URINE VOID OF 700 ML OF CLEAR/YELLOW URINE. PT EDUCATED ABOUT IMPORTANCE OF MINIMAL AMBULATION (TO AND FROM BATHROOM), AND TO AVOID ANY TRAUMA TO SURGICAL SITE. PT STATE VERBAL UNDERSTANDING TO THIS EDUCATION. PT BACK TO ROOM AND GETTING DRESSED AT THIS TIME. CALL LIGHT WITHIN REACH.
--- NOTE | 2023-06-20 13:15 | NUR ---
DISCUSSED W/JAMEY YORK WHEN PT CAN START ELIQUIS AGAIN, VERBAL ORDER FOR 3 DAYS. ADDED TO DISCHARGE EDUCATION.
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
[2023-06-20 13:32] VITALS: BP 121/52
--- NOTE | 2023-06-20 19:06 | OR ---
[facility] [address] [place], [place] [address] Signed DATE OF OPERATION: 06/20/2023 SURGEON: Louis Concepcion MD PREOPERATIVE DIAGNOSIS: Left lower leg chronic anterior nix wound, 6 x 6 cm. POSTOPERATIVE DIAGNOSIS: Left lower leg chronic anterior nix wound, 6 x 6 cm. PROCEDURES: 1. Preparation of left leg recipient wound bed with banjo curettage. 2. [place] of skin right anterolateral thigh, 0.15 inches with meshing of skin 1-1.5. 3. Application of split-thickness skin graft to left anterior lower leg nix area, 6 x 6 cm. ANESTHESIA: General, LMA; Memo Aguirre CRNA INDICATIONS: This 62-year-old white woman has longstanding chronic peripheral vascular disease including arterial insufficiency. Recently, I saw her in evaluation for severe cellulitis of the left lower extremity with open wound. She had relatively recently undergone multilevel stenting of the left lower extremity arterial branches including I believe the superficial femoral artery and now has a bounding normal pulse of the left foot. The foot is warm as is the leg. She has resolved her cellulitis initially with intravenous antibiotics, and subsequently outpatient oral antibiotics and wound VAC application to an area of full-thickness skin loss in the anterior left nix. Monitoring has been undertaken, and the wound is granulating perfectly now. Smoking cessation has been insisted upon and she is smoke-free. There is no evidence of cellulitis of the foot or leg on the left at this time. She is now admitted to undergo definitive closure of the wound with split-thickness skin grafting. She understands the risk of bleeding, infection, graft failure, and most importantly recurrent cellulitis and graft failure should she resume her smoking. Understanding that she wished to proceed. FINDINGS: Notably preoperative antibiotic clindamycin was given as well as vancomycin intravenously administered. She showed no evidence of cellulitic change of the foot, leg, or anywhere else. The wound was granulating quite nicely. Removal of the wound Electronically Signed By: LOUIS CONCEPCION MD 06/20/23 1906 PATIENT NAME: ANTOINE GARBER OPERATIVE REPORT DATE OF : 62 REPORT #: [id number] PHYSICIAN: LOUIS CONCEPCION MD PCP: SIOMARA RIOJAS PA-C REPORT IS CONFIDENTIAL AND NOT TO BE RELEASED WITHOUT AUTHORIZATION [facility] [address] [place], [place] [address] Signed VAC that was in place showed underlying good granulation curettage, resected residual granulation with biofilm. Donor site was in the contralateral (right) anterolateral thigh, 2 inches wide and approximately 4 inches in length. This was meshed in a 1-1.5 ratio allowing good application to the recipient bed of the left lower leg. It was secured with yossi without problem. DESCRIPTION OF PROCEDURE: The patient was brought to the operating room, given a general LMA type anesthetic. Preoperative antibiotic vancomycin had been initiated, but clindamycin additionally given preoperatively, anticipating additional infusion of the vancomycin. The right anterolateral thigh was prepared with a Betadine based solution and draped sterilely. Similarly, preparation of the left leg below the knee including the foot was undertaken with Betadine based solution. Once sterilely draped, the recipient site on the left anterolateral nix was debrided gently with a loop curettage removing the biofilm and layer of granulation tissue. Once preparation was completed, a sloppy wet epinephrine saline soaked gauze was applied to that site. Attention was turned to the anterolateral thigh on the contralateral side (right side). An area appropriate for skin harvest was identified and the area covered generously with mineral oil. Tension was placed inferiorly and using the Boyd dermatome with a 2 inch guide, segment of skin was incised. The amount excised was approximately 4 inches in length. Epinephrine saline soaked gauze was applied to the donor site. The skin was then placed in the meshing device in the appropriate way in a 1-1.5 ratio and meshed without problem. The skin was then applied to the recipient site on the left side, having secured good hemostasis. It was secured with a clip device. There was some overlap of normal skin, which will be in of no concern. The leg was then gently cleansed, freed of the Betadine prep solution. Adaptic applied to the recipient site as was fluff gauze, Kerlix roll, and ultimately an Kirill wrap. The donor site in the right anterolateral thigh was found to be hemostatic and a large OpSite was applied transversely with good effect. The patient was ultimately allowed to emerge from anesthesia, extubated, and taken to the recovery room in good condition. BLOOD LOSS: Minimal. COMPLICATIONS: None. Electronically Signed By: LOUIS CONCEPCION MD 06/20/23 6397 PATIENT NAME: ANTOINE GARBER OPERATIVE REPORT DATE OF : 62 REPORT #: [id number] PHYSICIAN: LOUIS CONCEPCION MD PCP: SIOMARA RIOJAS PA-C REPORT IS CONFIDENTIAL AND NOT TO BE RELEASED WITHOUT AUTHORIZATION [address] [address] Signed MD FREDY Daugherty/MODL /[id number] cc: Siomara Borrero Copies: ~ Electronically Signed By: LOUIS CONCEPCION MD 06/20/23 1906 PATIENT NAME: ANTOINE GARBER OPERATIVE REPORT DATE OF : 62 REPORT #: [id number] PHYSICIAN: LOUIS CONCEPCION MD PCP: SIOMARA RIOJAS PA-C REPORT IS CONFIDENTIAL AND NOT TO BE RELEASED WITHOUT AUTHORIZATION
== END 2023-06-20 13:45 | disposition home or self-care (01) ==
LOC: DS 07:55
PROVIDERS: ATTEND Surgery
PROC: 0HBJXZZ Excision of Left Upper Leg Skin, External Approach (ICD-10-PCS; 2023-06-20)
PROC: 0HRLX74 Replacement of Left Lower Leg Skin with Autologous Tissue Substitute, Partial Thickness, External Approach (ICD-10-PCS; principal; 2023-06-20 11:30)
DX: S81.802A Unspecified open wound, left lower leg, initial encounter (principal); X58.XXXA Exposure to other specified factors, initial encounter
CPT/HCPCS: A9270; J0131; J1100; J1644; J2001; J2250; J2405; J2704; J3010; J3370; J7121

== ENCOUNTER 2025-06-27 16:08 | Emergency (ER) | payer BC, OTHER ==
[~2025-06-27] VITALS: Ht 165.1 cm; Wt 78.2 kg
[~2025-06-27 16:08] MED LIST changes: +ACETAMINOPHEN500 MG PO; +OXYCODON-ACETA1 EAC2 PO; +SULFAMETHOXAZO1 EAC1 PO
[2025-06-27] MEDS ORDERED: ELIQUIS5 MG PO (16:47)
[2025-06-27] MEDS ORDERED: BUPROPION XL150 MG PO (16:47)
[2025-06-27] MEDS ORDERED: HYDROmorphone HCL 1 MG/ML SYR IV ONE (17:00)
[2025-06-27 17:09] LABS: BASOPHILS 0.6 % (0.1-1.2); EOSINOPHILS 1.3 % (0.7-5.8); LYMPHOCYTES 46.3 % (19.3-51.7); MCH 31.3 PG (25.6-32.2); MCHC 33.5 g/dL (32.2-35.5); MCV 93.3 fL (79.4-94.8); MONOCYTES 6.9 % (4.7-12.5); NEUTROPHILS 44.6 % (34.0-71.1); RBC 4.03 M/uL (3.93-5.22)
[2025-06-27 17:37] LABS: ALT (SGPT) 17.0 U/L (14-59); AST (SGOT) 11.0 U/L (15-37); GLOMERULAR FILTRATION RATE,EST 92.0 mL/min (>60); PROTEIN, TOTAL 7.4 g/dL (6.4-8.2); UREA NITROGEN 12.0 mg/dL (7-18)
[2025-06-27] MEDS ORDERED: HEPARIN SOD,PORK IN 0.45% NACL 500 ML IV SCH (19:00)
[2025-06-27 19:49] VITALS: BP 106/77
== END 2025-06-27 20:30 | disposition short-term general hospital (02) ==
LOC: ED 16:08
PROVIDERS: Emergency Medicine
DX: I99.8 Other disorder of circulatory system (principal); F17.200 Nicotine dependence, unspecified, uncomplicated; Z88.8 Allergy status to other drugs, medicaments and biological substances
CPT/HCPCS: 36415; 71045; 73706; 80053; 85025; 85730; 93926; 96365; 96375; 99285-25; J1171; J1644; J2405; Q9967